=== PATIENT | female | born 1955 | race Caucasian/White ===

== ENCOUNTER 2017-10-31 12:31 | Inpatient (IN) | payer BC ==
[2017-10-31] VITALS (7 sets, daily range): BP systolic 114–139; BP diastolic 54–64; PULSE 72–94; RESP 17–20; TEMP 96.7–98.1; O2SAT 94–98
[~2017-10-31] VITALS: Ht 160 cm; Wt 63.4 kg
[2017-10-31] MEDS ORDERED: CREON24 PO (12:46)
[2017-10-31] MEDS ORDERED: IMIT25TA PO (12:46)
[2017-10-31] MEDS ORDERED: SODIUM CHLORID 0.9% 500 ML INJ 500 ML IV ONE (13:00)
[2017-10-31] MEDS ORDERED: MORPHINE SULFATE 4 MG/ML INJ IV PUSH ONE ×2 (13:00→15:00)
[2017-10-31] MEDS ORDERED: ONDANSETRON HCL 4 MG/2 ML VIAL ONE (13:30)
[2017-10-31] MEDS ORDERED: ONDANSETRON HCL 4 MG/2 ML VIAL IV ONE (13:30)
[2017-10-31 13:43] LABS: AUTOMATED NEUTROPHIL # 6.5 TH/MM3 (1.8-7.7); BASOPHIL # 0.1 TH/MM3 (0-0.2); BASOPHIL % 0.6 % (0.0-2.0); EOSINOPHIL % 0.5 % (0.0-4.0); HEMATOCRIT 36.6 % (35.0-46.0); HEMO FLAGS DIFF FINAL; LYMPHOCYTE # 1.4 TH/MM3 (1.0-4.8); MEAN CELL VOLUME 97.9 FL (80.0-100.0); MEAN CORPUSCULAR HEMOGLOBIN 33.3 PG (27.0-34.0); MEAN CORPUSCULAR HGB CONC 34.1 % (32.0-36.0); MONO % 10.9 % (0.0-8.0); PLATELET COUNT 244 TH/MM3 (150-450); RED BLOOD COUNT 3.74 MIL/MM3 (4.00-5.30); RED CELL DISTRIBUTION WIDTH 12.8 % (11.6-17.2)
[2017-10-31 14:11] LABS: ANION GAP 5 MEQ/L (5-15); AST (GOT) 17 U/L (15-37); BICARBONATE 29.6 MEQ/L (21.0-32.0); CHLORIDE 103 MEQ/L (98-107); GLOMERULAR FILTRATION RATE 71 ML/MIN (>89); POTASSIUM 4.2 MEQ/L (3.5-5.1); SODIUM (NA) 138 MEQ/L (136-145)
[2017-10-31 14:17] LABS: ALKALINE PHOSPHATASE 139 U/L (45-117); ALT (GPT) 27 U/L (10-53); BLOOD UREA NITROGEN 15 MG/DL (7-18); TOTAL BILIRUBIN ADULT 0.5 MG/DL (0.2-1.0)
--- NOTE | 2017-10-31 14:50 | PD ---
HPI Chief Complaint: Fall Time Seen by Provider: 12:52 Travel History International Travel<30 days: No Contact w/Intl Traveler<30days: No Traveled to known affect area: No History of Present Illness HPI This is a 62-year-old female who has a history of pancreatic cancer currently not receiving treatment who presents to the emergency department having [place] a [place] in the beach. She has chronic gait abnormalities which contributed to her fall. She fell on her left hip and she reports severe pain in her left hip, constant, worse with movement, improved with rest. She denies any other injuries. People with her say that she lost consciousness for 1 minute after she fell but she didn't hit her head it seem like she just passed out. She doesn't remember that happening. She's not on any blood thinners. PFSH Past Medical History Cancer: Yes (BRAIN STEM, PANCREAS) Diabetes: No Migraines: Yes Tetanus Vaccination: < 5 Years Influenza Vaccination: No ?: Not Menopausal: Yes Past Surgical History Abdominal Surgery: Yes (HALF PANCREAS AND HALF SPLEEN) Neurologic Surgery: Yes (BRAIN STEM TUMOR REMOVAL) Social History Alcohol Use: Yes (OCCAS) Tobacco Use: No Substance Use: No Allergies-Medications (Allergen,Severity, Reaction): Coded Allergies: gluten (Verified Allergy, Mild, JOINT PAIN, 10/31/17) milk (Verified Allergy, Mild, JOINT PAIN, 10/31/17) soy (Verified Allergy, Mild, JOINT PAIN, 10/31/17) Reported Meds & Prescriptions Reported Meds & Active Scripts Active Reported Imitrex (Sumatriptan Succinate) 25 Mg Tab 25 Mg PO ONCE PRN If a satisfactory response has not been obtained at 2 hours, a second dose may be administered Creon (Amylase/Lipase/Protease) 24,000-76,000-120,000 Units Cap 1 Cap PO TIDPC Review of Systems Except as stated in HPI: all other systems reviewed are Neg Physical Exam Narrative GENERAL:Well appearing, no acute distress SKIN: Focused skin assessment warm and dry. HEAD: Atraumatic. Normocephalic. EYES: Pupils equal and round. No injection or drainage. ENT: Moist mucous membranes NECK: Trachea midline. No cervical spine tenderness. CARDIOVASCULAR: Regular rate and rhythm. No murmur appreciated. 2+ bilateral DP pulses with normal capillary refill. RESPIRATORY: Clear to auscultation. Breath sounds equal bilaterally. GASTROINTESTINAL: Abdomen soft, non-tender, nondistended. MUSCULOSKELETAL: Severe pain with flexion at the left hip NEUROLOGICAL: Awake and alert. No obvious cranial nerve deficits. Moving all extremities. PSYCHIATRIC: Appropriate mood and affect; insight and judgment normal. Data Data Last Documented VS Vital Signs Date Time Temp Pulse Resp B/P (MAP) Pulse Ox O2 Delivery O2 Flow Rate FiO2 10/31/17 15:53 94 18 129/58 (81) 98 Room Air 10/31/17 12:39 98.1 Orders Orders Complete Blood Count With Diff (10/31/17 13:00) Comprehensive Metabolic Panel (10/31/17 13:00) ^ Insert Iv (10/31/17 13:00) Hip, Uni(Ap&Lat) W Ap Pelvis (10/31/17 ) Morphine Inj (Morphine Inj) (10/31/17 13:00) ^ Insert Iv (10/31/17 13:00) Electrocardiogram (10/31/17 ) Sodium Chlorid 0.9% 500 Ml Inj (Ns 500 M (10/31/17 13:00) Ondansetron Inj (Zofran Inj) (10/31/17 13:30) Ondansetron Inj (Zofran Inj) (10/31/17 13:30) Morphine Inj (Morphine Inj) (10/31/17 15:00) Ct Pelvis W/O Iv Contrast (10/31/17 ) Ct Hip W/O Contrast (10/31/17 ) Admit Order (Ed Use Only) (10/31/17 16:58) Labs Laboratory Tests Test 10/31/17 13:30 White Blood Count 9.0 TH/MM3 Red Blood Count 3.74 MIL/MM3 Hemoglobin 12.5 GM/DL Hematocrit 36.6 % Mean Corpuscular Volume 97.9 FL Mean Corpuscular Hemoglobin 33.3 PG Mean Corpuscular Hemoglobin Concent 34.1 % Red Cell Distribution Width 12.8 % Platelet Count 244 TH/MM3 Mean Platelet Volume 8.5 FL Neutrophils (%) (Auto) 72.0 % Lymphocytes (%) (Auto) 16.0 % Monocytes (%) (Auto) 10.9 % Eosinophils (%) (Auto) 0.5 % Basophils (%) (Auto) 0.6 % Neutrophils # (Auto) 6.5 TH/MM3 Lymphocytes # (Auto) 1.4 TH/MM3 Monocytes # (Auto) 1.0 TH/MM3 Eosinophils # (Auto) 0.0 TH/MM3 Basophils # (Auto) 0.1 TH/MM3 CBC Comment DIFF FINAL Differential Comment Blood Urea Nitrogen 15 MG/DL Creatinine 0.81 MG/DL Random Glucose 110 MG/DL Total Protein 8.0 GM/DL Albumin 4.0 GM/DL Calcium Level 9.4 MG/DL Alkaline Phosphatase 139 U/L Aspartate Amino Transf (AST/SGOT) 17 U/L Alanine Aminotransferase (ALT/SGPT) 27 U/L Total Bilirubin 0.5 MG/DL Sodium Level 138 MEQ/L Potassium Level 4.2 MEQ/L Chloride Level 103 MEQ/L Carbon Dioxide Level 29.6 MEQ/L Anion Gap 5 MEQ/L Estimat Glomerular Filtration Rate 71 ML/MIN MDM Medical Decision Making Medical Screen Exam Complete: Yes Emergency Medical Condition: Yes Interpretation(s) Afebrile, no tachycardia, normotensive No leukocytosis Electrolytes are reassuring Last [address] 10/31/17 0000 Signed Impressions: Service Date/Time: Tuesday, October 31, 2017 16:07 - CONCLUSION: Intact pelvis. Vic Ortiz MD Lower Extremity CT 10/31/17 0000 Signed Impressions: Service Date/Time: Tuesday, October 31, 2017 16:07 - CONCLUSION: Minimally displaced intertrochanteric fracture of the proximal left femur. Vic Ortiz MD Hip and Pelvis X-Ray 10/31/17 0000 Signed Impressions: Service Date/Time: Tuesday, October 31, 2017 15:06 - CONCLUSION: 1. No acute fracture or dislocation. Abdoul Mccall MD Differential Diagnosis Proximal femur fracture, pubic ramus fracture, hip dislocation, hip contusion Narrative Course This is a 62-year-old female who presents to the emergency department following a mechanical fall. She is reporting left hip pain. She has a normal neurovascular exam. X-ray and CT demonstrate an intertrochanteric femur fracture. Patient will be admitted for surgical repair. She was seen by Dr. Chang in the emergency department. Diagnosis Primary Impression: Intertrochanteric fracture of femur Qualified Codes: S72.145A - Nondisplaced intertrochanteric fracture of left femur, initial encounter for closed fracture Admitting Information Admitting Physician Requests: Admit Tracy Downs MD Oct 31, 2017 14:50
--- NOTE | 2017-10-31 15:48 | RADRPT ---
EXAM DATE/TIME: 10/31/2017 15:06 [facility] COMPARISON: No previous studies available for comparison. INDICATIONS : Fall. Severe left hip pain. MEDICAL HISTORY : None. SURGICAL HISTORY : None. ENCOUNTER: Initial ACUITY: 1 day PAIN SCORE: 10/10 LOCATION: Left lateral FINDINGS: Examination of the left hip was performed with AP Pelvis. The primary and secondary trabecular patte rn of the femoral neck is intact. The hip joint is of normal width without significant sclerosis or bony hypertrophy. The acetabulum is grossly intact. CONCLUSION: 1. No acute fracture or dislocation. Abdoul Mccall MD on October 31, 2017 at 15:45 Board Certified Radiologist. This report was verified electronically.
--- NOTE | 2017-10-31 16:34 | RADRPT ---
EXAM DATE/TIME: 10/31/2017 16:07 [facility] COMPARISON: Left hip CT same day INDICATIONS : Left hip pain post fall. ORAL CONTRAST: No oral contrast ingested. RADIATION DOSE: 19.47 CTDIvol (mGy) MEDICAL HISTORY : None SURGICAL HISTORY : None. ENCOUNTER: Initial ACUITY: 1 day PAIN SCALE: 10/10 LOCATION: Left hip. TECHNIQUE: Volumetric scanning of the pelvis was performed. Using automated exposure control and adjustment of the mA and/or kV according to patient size, radiation dose was kept as low as reasonably achievable t o obtain optimal diagnostic quality images. DICOM format image data is available electronically for review and comparison. FINDINGS: BOWEL/MESENTERY: The visualized small and large bowel demonstrate no acute abnormality. There is no free fluid. BLADDER: There is no wall thickening or mass. RETROPERITONEUM: There is no aneurysm or lymphadenopathy. REPRODUCTIVE: Within normal limits. INGUINAL: There is no lymphadenopathy or hernia. MUSCULOSKELETAL: Bony pelvis is intact and has normal morphology. No subluxation of either hip. CONCLUSION: Intact pelvis. Vic Ortiz MD on October 31, 2017 at 16:30 Board Certified Radiologist. This report was verified electronically.
--- NOTE | 2017-10-31 16:36 | RADRPT ---
EXAM DATE/TIME: 10/31/2017 16:07 [facility] COMPARISON: CT PELVIS W/O CONTRAST, October 31, 2017, 16:07. HIP LEFT (AP&LAT 2/3VWS) W AP PELVIS, October 31, 2017, 15:06. INDICATIONS : Left hip pain post fall. RADIATION DOSE: ; Reconstructed from previous dataset, no dose MEDICAL HISTORY : None SURGICAL HISTORY : None. ENCOUNTER: Initial ACUITY: 1 day PAIN SCALE: 10/10 LOCATION: Left hip TECHNIQUE: Volumetric scanning of the hip was performed. Using automated exposure control and adjustment of the mA and/or kV according to patient size, radiation dose was kept as low as reasonably achievable to o btain optimal diagnostic quality images. DICOM format image data is available electronically for rev iew and comparison. FINDINGS: There is a mildly comminuted minimally displaced left intertrochanteric femoral fracture. Femoral nec k and head are intact. There is no subluxation. No significant joint effusion or hematoma demonstrate d. CONCLUSION: Minimally displaced intertrochanteric fracture of the proximal left femur. Vic Ortiz MD on October 31, 2017 at 16:32 Board Certified Radiologist. This report was verified electronically.
[2017-10-31] MEDS ORDERED: BISACODYL 10 MG SUPP RECTAL PRN (17:30)
[2017-10-31] MEDS ORDERED: SODIUM CHLORIDE 0.9% FLUSH 10 ML FLUSH IV FLUSH PRN (17:30)
[2017-10-31] MEDS ORDERED: MAGNESIUM HYDROXIDE SUSP 30 ML CUP PO PRN (17:30)
[2017-10-31] MEDS ORDERED: ACETAMINOPHEN 325 MG TAB PO PRN (17:30)
[2017-10-31] MEDS ORDERED: SENNOSIDES 8.6 MG TAB PO PRN (17:30)
[2017-10-31] MEDS ORDERED: LACTULOSE SYRUP 20 GM/30 ML CUP PO PRN (17:30)
[2017-10-31] MEDS ORDERED: NALOXONE HCL 0.4 MG/ML AMP IV PUSH PRN (17:30)
--- NOTE | 2017-10-31 17:37 | HHI.HP ---
[facility] Unknown Admission Diagnosis proximal femur fracture Diagnoses: Travel History International Travel<30 Days: No Contact w/Intl Traveler <30 Da: No Traveled to Known Affected Are: No History of Present Illness 62-year-old female with a past medical history significant for pancreatic cancer 2 years ago status post resection, chemotherapy and radiation presents after suffering a fall on the beach. The patient reports she is somewhat unsteady on her feet since she had a brain stem metastasis removed and was walking up an incline on the sand when she lost her footing and fell onto her left hip. Lower extremity CT shows a minimally displaced left intertrochanteric fracture of the proximal femur. The patient reports pain with movement. Laboratory values within normal limits. Temperature 98.1, pulse 74, respiratory rate 20, BP 122/57, pulse ox 98% on room air. 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 Father with diabetes mellitus. Social History Never smoker. Occasional alcohol. Denies tobacco or illicit drugs. Physical Exam Vital Signs Vital Signs Date Time Temp Pulse Resp B/P (MAP) Pulse Ox O2 Delivery O2 Flow Rate FiO2 10/31/17 15:53 94 18 129/58 (81) 98 Room Air 10/31/17 13:54 83 120/55 (76) 98 Room Air 10/31/17 12:46 77 20 100 Room Air 10/31/17 12:39 98.1 74 20 122/57 (78) 98 Physical Exam GENERAL: female lying in bed SKIN: No rashes, ecchymoses or lesions. Cool and dry. HEAD: Atraumatic. Normocephalic. No temporal or scalp tenderness. EYES: Pupils equal round and reactive. Extraocular motions intact. No scleral icterus. No injection or drainage. ENT: Nose without bleeding, purulent drainage or septal hematoma. Throat without erythema, tonsillar hypertrophy or exudate. Uvula midline. Airway patent. NECK: Trachea midline. No JVD or lymphadenopathy. Supple, nontender, no meningeal signs. CARDIOVASCULAR: Regular rate and rhythm without murmurs, gallops, or rubs. RESPIRATORY: Clear to auscultation. Breath sounds equal bilaterally. No wheezes , rales, or rhonchi. GASTROINTESTINAL: Abdomen soft, non-tender, nondistended. No hepato-splenomegaly , or palpable masses. No guarding. MUSCULOSKELETAL: Extremities without clubbing, cyanosis, or edema. No joint tenderness, effusion, or edema noted. No calf tenderness. Left lower extremity neurovascularly intact. NEUROLOGICAL: Awake and alert. Cranial nerves II through XII intact. Motor and sensory grossly within normal limits. Normal speech. Laboratory Laboratory Tests Test 10/31/17 13:30 White Blood Count 9.0 Red Blood Count 3.74 Hemoglobin 12.5 Hematocrit 36.6 Mean Corpuscular Volume 97.9 Mean Corpuscular Hemoglobin 33.3 Mean Corpuscular Hemoglobin Concent 34.1 Red Cell Distribution Width 12.8 Platelet Count 244 Mean Platelet Volume 8.5 Neutrophils (%) (Auto) 72.0 Lymphocytes (%) (Auto) 16.0 Monocytes (%) (Auto) 10.9 Eosinophils (%) (Auto) 0.5 Basophils (%) (Auto) 0.6 Neutrophils # (Auto) 6.5 Lymphocytes # (Auto) 1.4 Monocytes # (Auto) 1.0 Eosinophils # (Auto) 0.0 Basophils # (Auto) 0.1 CBC Comment DIFF FINAL Differential Comment Blood Urea Nitrogen 15 Creatinine 0.81 Random Glucose 110 Total Protein 8.0 Albumin 4.0 Calcium Level 9.4 Alkaline Phosphatase 139 Aspartate Amino Transf (AST/SGOT) 17 Alanine Aminotransferase (ALT/SGPT) 27 Total Bilirubin 0.5 Sodium Level 138 Potassium Level 4.2 Chloride Level 103 Carbon Dioxide Level 29.6 Anion Gap 5 Estimat Glomerular Filtration Rate 71 Result Diagram: 10/31/170 10/31/17 1330 Caprini VTE Risk Assessment Caprini VTE Risk Assessment: Mod/High Risk (score >= 2) Caprini Risk Assessment Model Point Value = 1 Point Value = 2 Point Value = 3 Point Value = 5 Age 41-60 Minor surgery BMI > 25 kg/m2 Swollen legs Varicose veins or History of unexplained or recurrent spontaneous Oral contraceptives or hormone replacement Sepsis (< 1 month) Serious lung disease, including pneumonia (< 1 month) Abnormal pulmonary function Acute myocardial infarction Congestive heart failure (< 1 month) History of inflammatory bowel disease Medical patient at bed rest Age 61-74 Arthroscopic surgery Major open surgery (> 45 min) Laparoscopic surgery (> 45 min) Malignancy Confined to bed (> 72 hours) Immobilizing plaster cast Central venous access Age >= 75 History of VTE Family history of VTE Factor V Leiden Prothrombin [id number] Lupus anticoagulant Anticardiolipin antibodies Elevated serum homocysteine Heparin-induced thrombocytopenia Other congenital or acquired thrombophilia Stroke (< 1 month) Elective arthroplasty Hip, pelvis, or leg fracture Acute spinal cord injury (< 1 month) Prophylaxis Regimen Total Risk Factor Score Risk Level Prophylaxis Regimen 0-1 Low Early ambulation 2 Moderate Order ONE of the following: *Sequential Compression Device (SCD) *Heparin 5000 units SQ BID 3-4 Higher Order ONE of the following medications: *Heparin 5000 units SQ TID *Enoxaparin/Lovenox 40 mg SQ daily (WT < 150 kg, CrCl > 30 mL/min) *Enoxaparin/Lovenox 30 mg SQ daily (WT < 150 kg, CrCl > 10-29 mL/min) *Enoxaparin/Lovenox 30 mg SQ BID (WT < 150 kg, CrCl > 30 mL/min) AND/OR *Sequential Compression Device (SCD) 5 or more Highest Order ONE of the following medications: *Heparin 5000 units SQ TID (Preferred with Epidurals) *Enoxaparin/Lovenox 40 mg SQ daily (WT < 150 kg, CrCl > 30 mL/min) *Enoxaparin/Lovenox 30 mg SQ daily (WT < 150 kg, CrCl > 10-29 mL/min) *Enoxaparin/Lovenox 30 mg SQ BID (WT < 150 kg, CrCl > 30 mL/min) AND *Sequential Compression Device (SCD) Assessment and Plan Assessment and Plan 62-year-old female with past medical history significant for metastatic pancreatic cancer presents with left hip fracture. 1. Left hip fracture Lower extremity CT showed minimally displaced intertrochanteric fracture of the proximal femur Coagulation studies pending Nothing by mouth after midnight Orthopedic surgery consulted, appreciate recommendations Morphine for pain PT consulted 2. History of pancreatic cancer Patient is status post distal pancreatectomy and splenectomy, brainstem tumor removal and chemotherapy/radiation Continue home Creon 3. Celiac disease Gluten-free diet FEN NPO at midnight NS at 75 cc/hr while NPO Electrolytes: monitor and replete prn Holding pharmacologic anticoagulation in anticipation of surgical intervention tomorrow Case discussed with ER physician at length Physician Certification 2 Midnight Certification Type: Admission for Inpatient Services Order for Inpatient Services The services are ordered in accordance with Medicare regulations or non- Medicare payer requirements, as applicable. In the case of services not specified as inpatient-only, they are appropriately provided as inpatient services in accordance with the 2-midnight benchmark. Estimated LOS (days): 2 2 days is the estimated time the patient will need to remain in the hospital, assuming treatment plan goals are met and no additional complications. Post-Hospital Plan: Not yet determined Jazmin Becerril MD Oct 31, 2017 17:37
[2017-10-31] MEDS: LIPASE/PROTEASE/AMYLASE (24,000/76,000/120,000) CAP PO SCH (18:30)
[2017-10-31] MEDS: MORPHINE SULFATE 4 MG/ML INJ IV PUSH PRN (19:02)
[2017-10-31] MEDS: ONDANSETRON HCL 4 MG/2 ML VIAL IVP PRN (19:02)
--- NOTE | 2017-10-31 19:07 | MB ---
cc: THEODORE GERBER DATE OF CONSULTATION: 10/31/2017. REASON FOR CONSULTATION: Left intertrochanteric hip fracture. HISTORY OF PRESENT ILLNESS: This is a 62-year-old female with past history of pancreatic cancer status post resection and chemotherapy as well as radiation therapy. She fell while on the beach vacationing from [place]. She was unsteady in her gait. She has a history also of brain stem metastases treated with surgery and some radiation and chemotherapy as well. After the fall, she had severe onset of left hip pain. She was unable to stand or bear weight or move that left hip. CT scan revealed evidence of a left intertrochanteric hip fracture. No numbness or tingling. No referred symptoms. The pain is constant and again severe with any movement. Slight relief with immobilization. PAST MEDICAL HISTORY: 1. Pancreatic cancer. 2. Celiac disease. 3. Bird's thyroiditis. 4. Migraines. PAST SURGICAL HISTORY: 1. Brain stem tumor resection. 2. Pancreas resection. 3. Splenectomy. MEDICATIONS: 1. Imitrex. 2. Creon. ALLERGIES: 1. GLUTEN. 2. MILK. 3. SOY. FAMILY HISTORY: Family history is positive for heart disease, diabetes. SOCIAL HISTORY: Nonsmoker. She does use drugs and occasionally drinks alcohol. REVIEW OF SYSTEMS: Negative for ten systems other than the history of present illness. PHYSICAL EXAMINATION: VITAL SIGNS: Temperature 98, pulse 74, respirations 20, blood pressure 120/50. GENERAL: The patient is awake, alert and lying in bed in mild distress as related to her injury. She is worse with any movement. HEAD, EYES, EARS, NOSE, THROAT: Normocephalic and atraumatic. Pupils round and reactive to light. Extraocular muscles intact. NECK: The neck is supple. LUNGS: Clear. HEART: Regular rate and rhythm. ABDOMEN: Abdomen soft and nontender. EXTREMITIES: The patient has pain with any passive motion of the left hip. She can flex and extend her ankle and toes distally. LABORATORY STUDIES: White blood cell count is 9, hemoglobin is 12, hematocrit is 36, platelet count 244,000. Glucose 110. IMAGING STUDIES: X-rays of the left hip reveal a left intertrochanteric hip fracture as well as CT scan. IMPRESSION: 1. A 62-year-old female status post fall with left intertrochanteric hip fracture. 2. History of pancreatic cancer with successful treatment. PLAN: Discussed the diagnosis and treatment with the patient as well as family members at the bedside. I spoke about the option of nonoperative treatment versus surgery. Surgery would consist of intramedullary nailing. The risks of surgery were discussed, which include but are not limited to anesthesia, bleeding, infection, damage to nerve or blood vessels, pain, stiffness, failure of hardware, blood clots, pulmonary embolism. The patient understands. She favors the benefits over the risks. She does wish to proceed with surgery. Written consent has been obtained. The surgical site has been marked. MD ANGELINE De Leon/AMINATA /6:34 PM /6:56 PM
[2017-10-31] MEDS ORDERED: CHLORHEXIDINE GLUCONATE 2 % 1 PACK (2 CLOTHS) TOPICAL PRN (20:30)
[2017-10-31] MEDS ORDERED: SODIUM CHLORID 0.9% 500 ML IV PRN (20:30)
[2017-10-31] MEDS ORDERED: POVIDONE IODINE 5% (ANTISEPSIS KIT) 4 APPLICATIONS EACH NARE PRN (20:30)
[2017-10-31] MEDS ORDERED: LACTATED RINGER'S 1000 ML IV PRN (20:30)
[2017-10-31] MEDS ORDERED: DOCUSATE SODIUM 50 MG/SENNA 8.6 MG TAB PO SCH (21:00)
[2017-10-31] MEDS: SODIUM CHLORIDE 0.9% FLUSH 10 ML FLUSH IV FLUSH SCH (21:43)
[2017-10-31] MEDS ORDERED: SODIUM CHLOR 0.9% 1000 ML INJ 1,000 ML IV SCH (23:59)
[2017-11-01] MEDS: MORPHINE SULFATE 4 MG/ML INJ IV PUSH PRN ×2 (02:23→06:28)
[2017-11-01 03:59] VITALS: BP 111/58; PULSE 75; RESP 18; TEMP 97.9; O2SAT 97
[2017-11-01] MEDS: ONDANSETRON HCL 4 MG/2 ML VIAL IVP PRN (06:33)
[2017-11-01] MEDS ORDERED: ENOX40P SQ (07:02)
[2017-11-01] MEDS ORDERED: HYDR-3288 PO (07:02)
[2017-11-01] MEDS ORDERED: ASPI81CH6 CHEW (07:03)
[2017-11-01 07:28] LABS: AUTOMATED NEUTROPHIL # 5.3 TH/MM3 (1.8-7.7); BASOPHIL % 0.5 % (0.0-2.0); EOSINOPHIL % 0.1 % (0.0-4.0); HEMATOCRIT 33.7 % (35.0-46.0); HEMO FLAGS DIFF FINAL; LYMPH % 18.5 % (9.0-44.0); LYMPHOCYTE # 1.4 TH/MM3 (1.0-4.8); MEAN CELL VOLUME 99.1 FL (80.0-100.0); MEAN CORPUSCULAR HEMOGLOBIN 33.1 PG (27.0-34.0); MEAN CORPUSCULAR HGB CONC 33.4 % (32.0-36.0); MONO % 12.2 % (0.0-8.0); NEUT % 68.7 % (16.0-70.0); PLATELET COUNT 210 TH/MM3 (150-450); RED CELL DISTRIBUTION WIDTH 12.9 % (11.6-17.2); WHITE BLOOD COUNT 7.8 TH/MM3 (4.0-11.0)
[2017-11-01 07:36] LABS: APTT (PATIENT) 26.9 SEC (24.3-30.1); PROTHROMBIN TIME - PATIENT 10.6 SEC (9.8-11.6)
[2017-11-01 07:48] LABS: BICARBONATE 29.1 MEQ/L (21.0-32.0); POTASSIUM 4.3 MEQ/L (3.5-5.1)
[2017-11-01 08:00] VITALS: BP 127/52; PULSE 71; RESP 17; TEMP 97.7; O2SAT 96
[2017-11-01] MEDS ORDERED: Post-op Orders (for Pharmacy) MISC XX ONE (09:30)
[2017-11-01] MEDS ORDERED: MAGNESIUM HYDROXIDE SUSP 30 ML CUP PO PRN (09:30)
[2017-11-01] MEDS ORDERED: diphenhydrAMINE HCL 25 MG CAP PO PRN (09:30)
[2017-11-01] MEDS: LIPASE/PROTEASE/AMYLASE (24,000/76,000/120,000) CAP PO SCH ×3 (09:30→18:30)
[2017-11-01] MEDS ORDERED: MISCELLANEOUS NURSING INFORMATION XX PRN (09:30)
[2017-11-01] MEDS ORDERED: MISCELLANEOUS PHARMACY INFORMATION XX ONE (09:30)
[2017-11-01] MEDS ORDERED: ONDANSETRON HCL 4 MG/2 ML VIAL IVP PRN (09:30)
[2017-11-01] MEDS ORDERED: NALOXONE HCL 0.4 MG/ML AMP IV PUSH PRN (09:30)
[2017-11-01] MEDS ORDERED: ACETAMINOPHEN/HYDROcodone 325 MG/7.5 MG TAB PO PRN (09:30)
--- NOTE | 2017-11-01 10:11 | HHI.PR ---
Subjective Remarks Follow-up for hip fracture Patient had episode of emesis during the interview. She vomited her food. Patient stated that she has been very anxious and that her migraines starting. She says she always vomits when this happens. Patient stated that he sister is tomorrow and she is very emotional that she will miss her . Otherwise her SEAMAN is mild and it is the same type of SEAMAN she had before. She asked for an ice pack. after the episode of emesis she stated that she did not feel nauseous anymore. Patient stated that she does not have any chest pain, tightness of breathing, palpitation, lightheadedness/dizziness. She stated that she is asymptomatic even with exertion. Her son at the bedside during interview. Objective Vitals Vital Signs Date Time Temp Pulse Resp B/P (MAP) Pulse Ox O2 Delivery O2 Flow Rate FiO2 11/01/17 08:00 97.7 71 17 127/52 (77) 96 11/01/17 03:59 97.9 75 18 111/58 (75) 97 10/31/17 23:21 96.7 72 17 114/54 (74) 95 10/31/17 19:36 97.5 81 18 121/57 (78) 94 10/31/17 19:15 91 14 139/64 (89) 94 10/31/17 18:16 92 20 129/60 (83) 94 Room Air 10/31/17 15:53 94 18 129/58 (81) 98 Room Air 10/31/17 13:54 83 120/55 (76) 98 Room Air 10/31/17 12:46 77 20 100 Room Air 10/31/17 12:39 98.1 74 20 122/57 (78) 98 I/O 10/31/17 10/31/17 10/31/17 11/01/17 11/01/17 11/01/17 07:00 15:00 23:00 07:00 15:00 23:00 Intake Total 500 ml 120 ml 0 ml Output Total 200 ml 350 ml Balance 500 ml -80 ml -350 ml Intake Oral 120 ml 0 ml IV Total 500 ml Output Urine Total 200 ml 350 ml # Bowel Movements 0 0 Result Diagram: 11/01/1760611/01/17606 Objective Remarks GENERAL: in NAD SKIN: Warm and dry. HEAD: Normocephalic. EYES: No scleral icterus. No injection or drainage. NECK: Supple, trachea midline. No JVD or lymphadenopathy. CARDIOVASCULAR: Regular rate and rhythm without murmurs, gallops, or rubs. RESPIRATORY: Breath sounds equal bilaterally. No accessory muscle use. GASTROINTESTINAL: Abdomen soft, non-tender, nondistended. MUSCULOSKELETAL: No cyanosis, or edema. Medications and IVs Current Medications Morphine Sulfate (Morphine Inj) 3 mg ONCE ONCE IV PUSH Last administered on 13:32; Start 10/31/17 at 13:00; Stop 10/31/17 at 13:02; Status DC Sodium Chloride 500 ml @ 500 mls/hr BOLUS ONCE IV Last administered on 13:31; Start 10/31/17 at 13:00; Stop 10/31/17 at 13:59; Status DC Ondansetron HCl (Zofran Inj) 4 mg ONCE ONCE IV Last administered on 10/31/17 13:32; Start 10/31/17 at 13:30; Stop 10/31/17 at 13:31; Status DC Ondansetron HCl (Zofran Inj) 4 mg STK-MED ONCE .ROUTE ; Start 10/31/17 at 13:30 ; Stop 10/31/17 at 13:31; Status DC Morphine Sulfate (Morphine Inj) 3 mg ONCE ONCE IV PUSH Last administered on 15:53; Start 10/31/17 at 15:00; Stop 10/31/17 at 15:01; Status DC Sodium Chloride 1,000 ml @ 75 mls/hr [id number] IV Last administered on 23:46; Start 10/31/17 at 23:59 Sodium Chloride (NS Flush) 2 ml UNSCH PRN IV FLUSH FLUSH AFTER USING IV ACCESS Last administered on 11/01/17 06:30; Start 10/31/17 at 17:30 Sodium Chloride (NS Flush) 2 ml BID IV FLUSH Last administered on 10/31/17 21: 43; Start 10/31/17 at 21:00 Acetaminophen (Tylenol) 650 mg Q4H PRN PO TEMP > 100.4; Start 10/31/17 at 17:30 Ondansetron HCl (Zofran Inj) 4 mg Q6H PRN IVP NAUSEA OR VOMITING Last administered on 11/01/17 06:33; Start 10/31/17 at 17:30; Stop 11/01/17 at 09:35 ; Status DC Naloxone HCl (Narcan Inj) 0.4 mg UNSCH PRN IV PUSH SEE LABEL COMMENTS; Start 10/31/17 at 17:30 Senna/Docusate Sodium (Angely-Colace) 1 tab BID PO Last administered on 21:43; Start 10/31/17 at 21:00 Magnesium Hydroxide (Milk Of Magnesia Liq) 30 ml Q12H PRN PO Mild constipation ; Start 10/31/17 at 17:30 Sennosides (Senokot) 17.2 mg Q12H PRN PO Moderate constipation; Start 10/31/17 at 17:30 Bisacodyl (Dulcolax Supp) 10 mg DAILY PRN RECTAL SEVERE CONSITIPATION; Start 10/31/17 at 17:30 Lactulose (Lactulose Liq) 30 ml DAILY PRN PO SEVERE CONSITIPATION; Start at 17:30 Amylase/Lipase/ Protease (Creon 24-76-120) 1 cap TIDPC PO ; Start 10/31/17 at 18 :30 Morphine Sulfate (Morphine Inj) 2 mg Q3H PRN IV PUSH pain 6-10 Last administered on 11/01/17 06:28; Start 10/31/17 at 17:30 Lactated Ringer's 1,000 ml @ 30 mls/hr Q24H PRN IV SEE LABEL COMMENTS Last administered on 11/01/17 06:29; Start 10/31/17 at 20:30; Stop 11/03/17 at 20:29 Sodium Chloride 500 ml @ 30 mls/hr [id number] PRN IV SEE LABEL COMMENTS; Start at 20:30; Stop 11/03/17 at 20:29 Povidone Iodine (Betadine 5% Antisepsis Kit) 1 applic REHAB PHYSICIAN PRN EACH NARE SEE LABEL COMMENTS; Start 10/31/17 at 20:30; Stop 11/03/17 at 20:29 Chlorhexidine Gluconate (Chlorhexidine 2% Cloth) 3 pack REHAB PHYSICIAN PRN TOPICAL SEE LABEL COMMENTS; Start 10/31/17 at 20:30; Stop 11/03/17 at 20:29 Dextrose/Sodium Chloride 1,000 ml @ 100 mls/hr Q10H IV ; Start 11/01/17 at 09: 27; Status UNV Miscellaneous Information (Post-op Orders (for Pharmacy)) STAT ONCE XX ; Start 11/01/17 at 09:30; Stop 11/01/17 at 09:31; Status UNV Enoxaparin Sodium (Lovenox Inj) 40 mg Q24H SQ ; Start 11/01/17 at 09:30; Stop 11/10/17 at 09:31; Status UNV Senna/Docusate Sodium (Angely-Colace) 1 tab BID PO ; Start 11/01/17 at 21:00; Status UNV Magnesium Hydroxide (Milk Of Magnesia Liq) 10 ml Q12H PRN PO CONSTIPATION; Start 11/01/17 at 09:30; Status UNV Cefazolin Sodium 1000 mg/Sodium Chloride 100 ml @ 200 mls/hr Q8H IV ; Start at 09:30; Status UNV Miscellaneous Information UNSCH PRN XX SEE LABEL COMMENTS; Start 11/01/17 at 09:30; Status UNV Miscellaneous Medication ([facility] Information) ONCE ONCE XX ; Start 11/01/17 at 09:30; Stop 11/01/17 at 09:31; Status UNV Acetaminophen/ Hydrocodone Bitart ([place]ige 7.5-325 Mg) 1 tab Q4H PRN PO PAIN LESS THAN 5 ON SCALE; Start 11/01/17 at 09:30; Status UNV Acetaminophen/ Hydrocodone Bitart ([place]ige 7.5-325 Mg) 2 tab Q6H PRN PO PAIN GREATER THAN/EQUAL TO 5; Start 11/01/17 at 09:30; Status UNV Morphine Sulfate (Morphine Inj) 3 mg Q3H PRN IV PUSH Pain after BIOSECURITY OFFICER discontinued; Start 11/01/17 at 09:30; Status UNV Ondansetron HCl (Zofran Inj) 4 mg Q4H PRN IVP NAUSEA OR VOMITING; Start at 09:30; Status UNV Multivitamins/ Minerals Therapeutic (Theragran M Tab) 1 tab DAILY PO ; Start at 09:00; Status UNV Diphenhydramine HCl (Benadryl) 25 mg Q6H PRN PO ITCHING; Start 11/01/17 at 09: 30; Status UNV Naloxone HCl (Narcan Inj) 0.4 mg UNSCH PRN IV PUSH RESPIRATORY RATE LESS THAN 10; Start 11/01/17 at 09:30; Status UNV Ondansetron HCl (Zofran Inj) 4 mg Q4HR PRN IVP NAUSEA OR VOMITING; Start at 09:45; Status UNV A/P Assessment and Plan 62-year-old female with past medical history significant for metastatic pancreatic cancer presents with left hip fracture. 1. Left hip fracture Lower extremity CT showed minimally displaced intertrochanteric fracture of the proximal femur Patient scheduled for surgery at 11:30 AM. Management per orthopedic surgeon. 2. History of pancreatic cancer Patient is status post distal pancreatectomy and splenectomy, brainstem tumor removal and chemotherapy/radiation Continue home Creon 3. Celiac disease Gluten-free diet 4. Migraines Patient had episode of emesis to his migraines. Will give Zofran when necessary. Patient transferred an ice pack for her migraines. Case discussed with patient's nurse. Jenni Ngo MD Nov 01, 2017 10:11
[2017-11-01] MEDS ORDERED: GENTAMICIN SULFATE 80 MG/2 ML VIAL ONE (11:30)
[2017-11-01] MEDS ORDERED: ACETAMINOPHEN 1000 MG/100 ML 100 ML IV ONE (11:32)
[2017-11-01] MEDS ORDERED: VANCOMYCIN HCL 1000 MG VIAL ONE (12:21)
--- NOTE | 2017-11-01 13:19 | MP ---
cc: THEODORE GERBER DATE OF SURGERY 11/01/2017 PREOPERATIVE DIAGNOSIS Left intertrochanteric hip fracture. POSTOPERATIVE DIAGNOSIS Left intertrochanteric hip fracture. PROCEDURE Intramedullary nailing of left intertrochanteric hip fracture. SURGEON Dr. Theodore Gerber CONCESSION ATTENDANT Nilay Laughlin PA-C ANESTHESIA General. ESTIMATED BLOOD LOSS 100 cc. COMPLICATIONS None. IMPLANTS USED Synthes. JUSTIFICATION This patient is a 62-year-old female who fell sustaining a displaced left intertrochanteric hip fracture. She was taken to [facility] Emergency Room and x-rays confirmed the above-named findings. The patient was counseled as to the risks, benefits and alternatives to the above-named proposed surgical procedure. She did wish to proceed with surgery. PROCEDURE IN DETAIL Written consent was obtained. The patient was identified by name, taken to operating room, placed supine on the operating room table. General anesthesia was administered as well as 2 grams of IV Ancef. The left foot was placed in a padded traction boot, the right leg placed in a padded well leg maritnez. All bony prominences and pressure points were well padded. The left hip and left lower extremity were prepped and draped using isopropyl alcohol, Hibiclens solution and Chloraprep solution. A longitudinal incision was made in the lateral aspect of the left hip. The fascial layer was incised. A guidewire was used to gain entrance into the intramedullary canal of the femur. This was followed by cannulated anterior reamer, subsequently a Synthes 11 x 170-mm titanium trochanteric femoral nail was inserted into the intramedullary canal of the femur. The 130-degree locking jig was used to place a guidepin centered into the femoral head on the AP and lateral fluoroscopic projection. This was followed by placement of an 85-mm spiral blade. The top locking screw was secured to create a fixed angle sliding construct. Distally the locking jig was used to place a single lateral to medial transverse static locking screw. Fluoroscopic imaging again confirmed hardware placement and fracture reduction. The surgical wound was thoroughly irrigated with sterile saline solution. The fascial layer was closed with #1 Vicryl suture, the subcutaneous layer with 2-0 Vicryl suture. The skin was closed with Dermabond, sterile dressing applied. The patient tolerated the procedure well with no intraoperative complications noted. Nilay Laughlin, physician legislative assistant certified, was present during the entire procedure to include patient positioning and the procedure itself. The medical necessity of a physician's legislative assistant was indicated due to the complexity of the procedure. He assisted with manipulation of the leg and also traction. He assisted with both achieving and maintaining fracture reduction along with implantation of the internal fixation device. Theodore Gerber MD [id number]/SSB /12:39 PM /1:05 PM
[2017-11-01] MEDS: DEXT 5%-NACL 0.45% 1000 ML INJ 1,000 ML IV SCH ×2 (13:40)
--- NOTE | 2017-11-01 13:54 | RADRPT ---
EXAM DATE/TIME: 11/01/2017 12:32 [facility] COMPARISON: HIP LEFT (AP&LAT 2/3VWS) W AP PELVIS, October 31, 2017, 15:06. INDICATIONS : Post-op ORIF left hip fracture. MEDICAL HISTORY : None. SURGICAL HISTORY : None. ENCOUNTER: Subsequent ACUITY: 2 days PAIN SCORE: Non-responsive. LOCATION: Left hip. FINDINGS: A two view examination of the left hip was performed. Medullary laura and compression screw secures the previously identified intertrochanteric fracture. Fracture fragments are in excellent anatomic posit ion. CONCLUSION: Appropriate postoperative appearance of the left hip status post open reduction and internal fix ation as above. Robert Crespo MD on November 01, 2017 at 13:50 Board Certified Radiologist. This report was verified electronically.
[2017-11-01] MEDS ORDERED: DO NOT ADM ANY ANTICOAGULANT DRUGS PRN (14:15)
[2017-11-01] MEDS ORDERED: MORPHINE SULFATE 4 MG/ML INJ IV PUSH PRN (15:00)
[2017-11-01 16:00] VITALS: BP 112/48; PULSE 68; RESP 17; TEMP 98.4; O2SAT 94
[2017-11-01] MEDS: ACETAMINOPHEN/HYDROcodone 325 MG/7.5 MG TAB PO PRN ×2 (16:18→20:00)
--- NOTE | 2017-11-01 18:48 | EKG ---
Date Performed: 10/31/2017 Time Performed: 18:32:14 PTAGE: 62 years EKG: Sinus rhythm NORMAL ECG NO PREVIOUS TRACING DOCTOR: Milagro Mahmood Interpretating Date/Time 11/01/2017 18:47:18
[2017-11-01] MEDS: DOCUSATE SODIUM 50 MG/SENNA 8.6 MG TAB PO SCH (19:59)
[2017-11-01 20:47] VITALS: BP 97/51; PULSE 70; RESP 17; TEMP 98.9; O2SAT 95
[2017-11-01] MEDS: SODIUM CHLORIDE 0.9% FLUSH 10 ML FLUSH IV FLUSH SCH (21:00)
[2017-11-02] MEDS: ACETAMINOPHEN/HYDROcodone 325 MG/7.5 MG TAB PO PRN ×6 (00:01→22:18)
[2017-11-02 00:30] VITALS: BP 102/53; PULSE 71; RESP 17; TEMP 98.7; O2SAT 96
[2017-11-02 04:48] VITALS: BP 102/50; PULSE 72; RESP 17; TEMP 99; O2SAT 96
[2017-11-02 06:11] LABS: HEMATOCRIT 29.3 % (35.0-46.0); MEAN CELL VOLUME 98.2 FL (80.0-100.0); MEAN CORPUSCULAR HGB CONC 33.6 % (32.0-36.0); PLATELET COUNT 162 TH/MM3 (150-450); RED BLOOD COUNT 2.99 MIL/MM3 (4.00-5.30); RED CELL DISTRIBUTION WIDTH 12.8 % (11.6-17.2); REVIEW FLAG FINAL; WHITE BLOOD COUNT 6.8 TH/MM3 (4.0-11.0)
[2017-11-02 06:37] LABS: BICARBONATE 28.1 MEQ/L (21.0-32.0); POTASSIUM 3.7 MEQ/L (3.5-5.1)
[2017-11-02] MEDS: MULTIVITAMINS/MINERALS THERAPEUTIC TAB PO SCH (07:42)
[2017-11-02] MEDS: LIPASE/PROTEASE/AMYLASE (24,000/76,000/120,000) CAP PO SCH ×3 (07:42→17:44)
[2017-11-02] MEDS: DOCUSATE SODIUM 50 MG/SENNA 8.6 MG TAB PO SCH ×2 (07:43→19:53)
[2017-11-02 08:00] VITALS: BP 115/96; PULSE 70; RESP 16; TEMP 97.5; O2SAT 96
--- NOTE | 2017-11-02 10:00 | HHI.PR ---
Subjective Remarks Follow-up for surgery Patient had a migraine this morning she was given sumatriptan. Migraine headache is improving with sumatriptan. Patient will emotional today because today's her sister's . She stated that she tolerated the soup but has not been eating much. She remains afebrile. Otherwise she has no complaints. Objective Vitals Vital Signs Date Time Temp Pulse Resp B/P (MAP) Pulse Ox O2 Delivery O2 Flow Rate FiO2 11/02/17 04:48 99.0 72 17 102/50 (67) 96 11/02/17 00:30 98.7 71 17 102/53 (69) 96 11/01/17 20:47 98.9 70 17 97/51 (66) 95 11/01/17 16:00 98.4 68 17 112/48 (69) 94 11/01/17 14:00 97.6 72 16 111/58 (75) 96 Room Air 11/01/17 13:45 74 16 112/60 (77) 96 Room Air 11/01/17 13:30 77 16 117/63 (81) 95 Room Air 11/01/17 13:15 80 16 120/64 (82) 95 Room Air 11/01/17 13:10 97.9 80 20 121/60 (80) 100 Nasal Cannula 3 I/O 11/01/17 11/01/17 11/01/17 11/02/17 11/02/17 11/02/17 07:00 15:00 23:00 07:00 15:00 23:00 Intake Total 0 ml 1040 ml 240 ml 120 ml Output Total 350 ml 452 ml 1000 ml 550 ml Balance -350 ml 588 ml -760 ml -430 ml Intake Oral 0 ml 240 ml 120 ml IV Total 40 ml Other 1000 ml Output Urine Total 350 ml 350 ml 1000 ml 550 ml Emesis 2 ml Estimated Blood Loss 100 ml # Bowel Movements 0 0 0 Result Diagram: 11/02/17 0552 11/02/17551 Objective Remarks GENERAL: in NAD CARDIOVASCULAR: Regular rate and rhythm without murmurs, gallops, or rubs. RESPIRATORY: Breath sounds equal bilaterally. No accessory muscle use. GASTROINTESTINAL: Abdomen soft, non-tender, nondistended. MUSCULOSKELETAL: No cyanosis, or edema. NEURO: CN2-12 intact. Motor and sensation grossly intact. Coordination intact. Medications and IVs Current Medications Morphine Sulfate (Morphine Inj) 3 mg ONCE ONCE IV PUSH Last administered on 13:32; Start 10/31/17 at 13:00; Stop 10/31/17 at 13:02; Status DC Sodium Chloride 500 ml @ 500 mls/hr BOLUS ONCE IV Last administered on 13:31; Start 10/31/17 at 13:00; Stop 10/31/17 at 13:59; Status DC Ondansetron HCl (Zofran Inj) 4 mg ONCE ONCE IV Last administered on 10/31/17 13:32; Start 10/31/17 at 13:30; Stop 10/31/17 at 13:31; Status DC Ondansetron HCl (Zofran Inj) 4 mg STK-MED ONCE .ROUTE ; Start 10/31/17 at 13:30 ; Stop 10/31/17 at 13:31; Status DC Morphine Sulfate (Morphine Inj) 3 mg ONCE ONCE IV PUSH Last administered on 15:53; Start 10/31/17 at 15:00; Stop 10/31/17 at 15:01; Status DC Sodium Chloride 1,000 ml @ 75 mls/hr [id number] IV Last administered on 23:46; Start 10/31/17 at 23:59; Stop 11/01/17 at 11:19; Status DC Sodium Chloride (NS Flush) 2 ml UNSCH PRN IV FLUSH FLUSH AFTER USING IV ACCESS Last administered on 11/01/17 06:30; Start 10/31/17 at 17:30 Sodium Chloride (NS Flush) 2 ml BID IV FLUSH Last administered on 11/01/17 21: 00; Start 10/31/17 at 21:00 Acetaminophen (Tylenol) 650 mg Q4H PRN PO TEMP > 100.4; Start 10/31/17 at 17:30 Ondansetron HCl (Zofran Inj) 4 mg Q6H PRN IVP NAUSEA OR VOMITING Last administered on 11/01/17 06:33; Start 10/31/17 at 17:30; Stop 11/01/17 at 09:35 ; Status DC Naloxone HCl (Narcan Inj) 0.4 mg UNSCH PRN IV PUSH SEE LABEL COMMENTS; Start 10/31/17 at 17:30; Stop 11/01/17 at 11:20; Status DC Senna/Docusate Sodium (Angely-Colace) 1 tab BID PO Last administered on 21:43; Start 10/31/17 at 21:00; Stop 11/01/17 at 10:58; Status DC Magnesium Hydroxide (Milk Of Magnesia Liq) 30 ml Q12H PRN PO Mild constipation ; Start 10/31/17 at 17:30 Sennosides (Senokot) 17.2 mg Q12H PRN PO Moderate constipation; Start 10/31/17 at 17:30 Bisacodyl (Dulcolax Supp) 10 mg DAILY PRN RECTAL SEVERE CONSITIPATION; Start 10/31/17 at 17:30 Lactulose (Lactulose Liq) 30 ml DAILY PRN PO SEVERE CONSITIPATION; Start at 17:30 Amylase/Lipase/ Protease (Creon 24-76-120) 1 cap TIDPC PO Last administered on 11/02/17 07:42; Start 10/31/17 at 18:30 Morphine Sulfate (Morphine Inj) 2 mg Q3H PRN IV PUSH pain 6-10 Last administered on 11/01/17 06:28; Start 10/31/17 at 17:30; Stop 11/01/17 at 11:53 ; Status DC Lactated Ringer's 1,000 ml @ 30 mls/hr Q24H PRN IV SEE LABEL COMMENTS Last administered on 11/01/17 06:29; Start 10/31/17 at 20:30; Stop 11/03/17 at 20:29 Sodium Chloride 500 ml @ 30 mls/hr [id number] PRN IV SEE LABEL COMMENTS; Start at 20:30; Stop 11/03/17 at 20:29 Povidone Iodine (Betadine 5% Antisepsis Kit) 1 applic CONTRACTS ADMINISTRATOR PRN EACH NARE SEE LABEL COMMENTS; Start 10/31/17 at 20:30; Stop 11/03/17 at 20:29 Chlorhexidine Gluconate (Chlorhexidine 2% Cloth) 3 pack CONTRACTS ADMINISTRATOR PRN TOPICAL SEE LABEL COMMENTS; Start 10/31/17 at 20:30; Stop 11/03/17 at 20:29 Dextrose/Sodium Chloride 1,000 ml @ 100 mls/hr Q10H IV Last administered on 00:00; Start 11/01/17 at 11:30 Miscellaneous Information (Post-op Orders (for Pharmacy)) STAT ONCE XX ; Start 11/01/17 at 09:30; Stop 11/01/17 at 10:58; Status DC Enoxaparin Sodium (Lovenox Inj) 40 mg Q24H SQ ; Start 11/02/17 at 12:00; Stop 11/11/17 at 12:01 Senna/Docusate Sodium (Angely-Colace) 1 tab BID PO Last administered on 07:43; Start 11/01/17 at 21:00 Magnesium Hydroxide (Milk Of Magnesia Liq) 10 ml Q12H PRN PO CONSTIPATION; Start 11/01/17 at 09:30; Status UNV Cefazolin Sodium 1000 mg/Sodium Chloride 100 ml @ 200 mls/hr Q8H IV Last administered on 11/02/17 04:17; Start 11/01/17 at 20:00; Stop 11/02/17 at 12:29 Miscellaneous Information UNSCH PRN XX SEE LABEL COMMENTS; Start 11/01/17 at 09:30 Miscellaneous Medication ([facility] Information) ONCE ONCE XX ; Start 11/01/17 at 09:30; Stop 11/01/17 at 09:31; Status UNV Acetaminophen/ Hydrocodone Bitart ([place] 7.5-325 Mg) 1 tab Q4H PRN PO PAIN LESS THAN 5 ON SCALE Last administered on 11/02/17 08:21; Start 11/01/17 at 09: 30 Acetaminophen/ Hydrocodone Bitart ([place] 7.5-325 Mg) 2 tab Q6H PRN PO PAIN GREATER THAN/EQUAL TO 5; Start 11/01/17 at 09:30 Morphine Sulfate (Morphine Inj) 3 mg Q3H PRN IV PUSH BREAKTHROUGH PAIN; Start 11/01/17 at 15:00 Ondansetron HCl (Zofran Inj) 4 mg Q4H PRN IVP NAUSEA OR VOMITING; Start at 09:30; Status UNV Multivitamins/ Minerals Therapeutic (Theragran M Tab) 1 tab DAILY PO Last administered on 11/02/17 07:42; Start 11/02/17 at 09:00 Diphenhydramine HCl (Benadryl) 25 mg Q6H PRN PO ITCHING; Start 11/01/17 at 09: 30 Naloxone HCl (Narcan Inj) 0.4 mg UNSCH PRN IV PUSH RESPIRATORY RATE LESS THAN 10; Start 11/01/17 at 09:30 Ondansetron HCl (Zofran Inj) 4 mg Q4HR PRN IVP NAUSEA OR VOMITING; Start at 09:45 Gentamicin Sulfate (Gentamicin Inj) 240 mg STK-MED ONCE .ROUTE Last administered on 11/01/17 12:26; Start 11/01/17 at 11:30; Stop 11/01/17 at 11:31 ; Status DC Acetaminophen 100 ml @ As Directed STK-MED ONCE IV ; Start 11/01/17 at 11:32; Stop 11/01/17 at 11:33; Status DC Vancomycin HCl (Vancomycin Inj) 1,000 mg STK-MED ONCE .ROUTE Last administered on 11/01/17 12:23; Start 11/01/17 at 12:21; Stop 11/01/17 at 12:22; Status DC Miscellaneous Information ALL NURSING DEPARTME... UNSCH PRN .XX SEE LABEL COMMENTS; Start 11/01/17 at 14:15; Stop 11/02/17 at 14:14 Sumatriptan Succinate (Imitrex) 50 mg DAILY PRN PO MIGRAINE HEADACHE; Start at 08:15 A/P Assessment and Plan 62-year-old female with past medical history significant for metastatic pancreatic cancer presents with left hip fracture. 1. Left hip fracture Lower extremity CT showed minimally displaced intertrochanteric fracture of the proximal femur Patient scheduled for surgery at 11:30 AM. Management per orthopedic surgeon. 2. History of pancreatic cancer Patient is status post distal pancreatectomy and splenectomy, brainstem tumor removal and chemotherapy/radiation Continue home Creon 3. Celiac disease Gluten-free diet 4. Migraines Patient had episode of emesis to his migraines. Will give Zofran when necessary. Patient transferred an ice pack for her migraines. Case discussed with patient's nurse. Jenni Ngo MD Nov 02, 2017 10:00
[2017-11-02] MEDS: ENOXAPARIN SODIUM 40 MG/0.4 ML SYRINGE SQ SCH (11:33)
[2017-11-02 12:00] VITALS: BP 130/63; PULSE 79; RESP 16; TEMP 97.6; O2SAT 94
[2017-11-02] MEDS: ONDANSETRON HCL 4 MG/2 ML VIAL IVP PRN (13:44)
[2017-11-02 16:00] VITALS: BP 121/56; PULSE 79; RESP 16; TEMP 97.8; O2SAT 95
[2017-11-02] MEDS: SODIUM CHLORIDE 0.9% FLUSH 10 ML FLUSH IV FLUSH SCH (19:57)
[2017-11-02 20:36] VITALS: BP 94/52; PULSE 80; RESP 16; TEMP 97.8; O2SAT 95
[2017-11-02] MEDS: DEXT 5%-NACL 0.45% 1000 ML INJ 1,000 ML IV SCH (20:42)
[2017-11-03] VITALS (8 sets, daily range): BP systolic 98–120; BP diastolic 41–56; PULSE 76–82; RESP 16–18; TEMP 97.6–99; O2SAT 93–96
[2017-11-03] MEDS: ACETAMINOPHEN/HYDROcodone 325 MG/7.5 MG TAB PO PRN ×3 (06:16→18:30)
[2017-11-03 08:48] LABS: HEMATOCRIT 29.8 % (35.0-46.0); MEAN CELL VOLUME 98.4 FL (80.0-100.0); MEAN CORPUSCULAR HGB CONC 33.6 % (32.0-36.0); PLATELET COUNT 166 TH/MM3 (150-450); RED BLOOD COUNT 3.03 MIL/MM3 (4.00-5.30); RED CELL DISTRIBUTION WIDTH 12.8 % (11.6-17.2); REVIEW FLAG FINAL; WHITE BLOOD COUNT 7.7 TH/MM3 (4.0-11.0)
[2017-11-03] MEDS: LIPASE/PROTEASE/AMYLASE (24,000/76,000/120,000) CAP PO SCH ×3 (08:49→18:30)
[2017-11-03] MEDS: DOCUSATE SODIUM 50 MG/SENNA 8.6 MG TAB PO SCH ×2 (08:49→21:17)
[2017-11-03] MEDS: MULTIVITAMINS/MINERALS THERAPEUTIC TAB PO SCH (08:49)
--- NOTE | 2017-11-03 08:50 | PD.ORT.PN ---
Subjective Post Op Day #: 2 Subjective Remarks pain under control. Objective Vitals Vital Signs Date Time Temp Pulse Resp B/P (MAP) Pulse Ox O2 Delivery O2 Flow Rate FiO2 11/03/17 01:32 95 11/03/17 00:21 97.6 76 16 98/56 (70) 95 11/02/17 20:36 97.8 80 16 94/52 (66) 95 11/02/17 16:00 97.8 79 16 121/56 (77) 95 11/02/17 12:00 97.6 79 16 130/63 (85) 94 I/O 11/02/17 11/02/17 11/02/17 11/03/17 11/03/17 11/03/17 07:00 15:00 23:00 07:00 15:00 23:00 Intake Total 120 ml 840 ml 120 ml Output Total 550 ml 1900 ml 250 ml Balance -430 ml -1060 ml -130 ml Intake Oral 120 ml 840 ml 120 ml Output Urine Total 550 ml 1900 ml 250 ml # Bowel Movements 0 0 0 Result Diagram: 11/02/17 0552 11/02/17 0552 Objective Remarks in bed, nad dressing c/d/i neg homans nvi Assessment & Plan Ortho Post Op Day #: 2 Problem List: Assessment and Plan s/p L Troch Nail wbat daily dressing changes lovenox please give copy of Op Note and CD of xrays - patient lives in [place] ortho stable f/up dr. thapa 2 weeks if patient still in [facility] Irvin Laughlin Nov 03, 2017 08:50
[2017-11-03] MEDS: SUMAtriptan SUCCINATE 50 MG TAB PO PRN (08:52)
[2017-11-03] MEDS: ONDANSETRON HCL 4 MG/2 ML VIAL IVP PRN (08:52)
[2017-11-03] MEDS: SODIUM CHLORIDE 0.9% FLUSH 10 ML FLUSH IV FLUSH SCH ×2 (09:00→20:47)
[2017-11-03 09:14] LABS: BICARBONATE 28.9 MEQ/L (21.0-32.0); POTASSIUM 3.7 MEQ/L (3.5-5.1)
[2017-11-03] MEDS ORDERED: SOD PHOSPHATE/SOD BIPHOSPHATE (ADULT) ENEMA 133ML RECTAL ONE (10:00)
[2017-11-03] MEDS: DEXT 5%-NACL 0.45% 1000 ML INJ 1,000 ML IV SCH ×2 (11:00→22:19)
[2017-11-03] MEDS: ENOXAPARIN SODIUM 40 MG/0.4 ML SYRINGE SQ SCH (13:00)
--- NOTE | 2017-11-03 13:30 | HHI.PR ---
Subjective Remarks f/u for hip surgery and migraines. patient stated migraines resolved. she had no other complaints. Patient stated she has nephews in [place] and interested in going there. otherwise no other events. contreras removed this morning and she stated she knows she is about to have BM soon. Objective Vitals Vital Signs Date Time Temp Pulse Resp B/P (MAP) Pulse Ox O2 Delivery O2 Flow Rate FiO2 11/03/17 12:00 98.4 76 18 106/41 (62) 95 11/03/17 08:30 96 21 11/03/17 08:00 98.9 76 18 118/53 (74) 93 11/03/17 01:32 95 11/03/17 00:21 97.6 76 16 98/56 (70) 95 11/02/17 20:36 97.8 80 16 94/52 (66) 95 11/02/17 16:00 97.8 79 16 121/56 (77) 95 I/O 11/02/17 11/02/17 11/02/17 11/03/17 11/03/17 11/03/17 07:00 15:00 23:00 07:00 15:00 23:00 Intake Total 120 ml 840 ml 120 ml Output Total 550 ml 1900 ml 250 ml Balance -430 ml -1060 ml -130 ml Intake Oral 120 ml 840 ml 120 ml Output Urine Total 550 ml 1900 ml 250 ml # Bowel Movements 0 0 0 Result Diagram: 11/03/17 0741 11/03/17 0741 Objective Remarks GENERAL: in NAD CARDIOVASCULAR: Regular rate and rhythm without murmurs, gallops, or rubs. RESPIRATORY: Breath sounds equal bilaterally. No accessory muscle use. GASTROINTESTINAL: Abdomen soft, non-tender, nondistended. MUSCULOSKELETAL: No cyanosis, or edema. NEURO: CN2-12 intact. Motor and sensation grossly intact. Coordination intact. Medications and IVs Current Medications Morphine Sulfate (Morphine Inj) 3 mg ONCE ONCE IV PUSH Last administered on 13:32; Start 10/31/17 at 13:00; Stop 10/31/17 at 13:02; Status DC Sodium Chloride 500 ml @ 500 mls/hr BOLUS ONCE IV Last administered on 13:31; Start 10/31/17 at 13:00; Stop 10/31/17 at 13:59; Status DC Ondansetron HCl (Zofran Inj) 4 mg ONCE ONCE IV Last administered on 10/31/17 13:32; Start 10/31/17 at 13:30; Stop 10/31/17 at 13:31; Status DC Ondansetron HCl (Zofran Inj) 4 mg STK-MED ONCE .ROUTE ; Start 10/31/17 at 13:30 ; Stop 10/31/17 at 13:31; Status DC Morphine Sulfate (Morphine Inj) 3 mg ONCE ONCE IV PUSH Last administered on 15:53; Start 10/31/17 at 15:00; Stop 10/31/17 at 15:01; Status DC Sodium Chloride 1,000 ml @ 75 mls/hr [id number] IV Last administered on 23:46; Start 10/31/17 at 23:59; Stop 11/01/17 at 11:19; Status DC Sodium Chloride (NS Flush) 2 ml UNSCH PRN IV FLUSH FLUSH AFTER USING IV ACCESS Last administered on 11/01/17 06:30; Start 10/31/17 at 17:30 Sodium Chloride (NS Flush) 2 ml BID IV FLUSH Last administered on 11/02/17 19: 57; Start 10/31/17 at 21:00 Acetaminophen (Tylenol) 650 mg Q4H PRN PO TEMP > 100.4; Start 10/31/17 at 17:30 Ondansetron HCl (Zofran Inj) 4 mg Q6H PRN IVP NAUSEA OR VOMITING Last administered on 11/01/17 06:33; Start 10/31/17 at 17:30; Stop 11/01/17 at 09:35 ; Status DC Naloxone HCl (Narcan Inj) 0.4 mg UNSCH PRN IV PUSH SEE LABEL COMMENTS; Start 10/31/17 at 17:30; Stop 11/01/17 at 11:20; Status DC Senna/Docusate Sodium (Angely-Colace) 1 tab BID PO Last administered on 21:43; Start 10/31/17 at 21:00; Stop 11/01/17 at 10:58; Status DC Magnesium Hydroxide (Milk Of Magnesia Liq) 30 ml Q12H PRN PO Mild constipation ; Start 10/31/17 at 17:30 Sennosides (Senokot) 17.2 mg Q12H PRN PO Moderate constipation; Start 10/31/17 at 17:30 Bisacodyl (Dulcolax Supp) 10 mg DAILY PRN RECTAL SEVERE CONSITIPATION; Start 10/31/17 at 17:30 Lactulose (Lactulose Liq) 30 ml DAILY PRN PO SEVERE CONSITIPATION; Start at 17:30 Amylase/Lipase/ Protease (Creon 24-76-120) 1 cap TIDPC PO Last administered on 11/03/17 12:59; Start 10/31/17 at 18:30 Morphine Sulfate (Morphine Inj) 2 mg Q3H PRN IV PUSH pain 6-10 Last administered on 11/01/17 06:28; Start 10/31/17 at 17:30; Stop 11/01/17 at 11:53 ; Status DC Lactated Ringer's 1,000 ml @ 30 mls/hr Q24H PRN IV SEE LABEL COMMENTS Last administered on 11/01/17 06:29; Start 10/31/17 at 20:30; Stop 11/03/17 at 20:29 Sodium Chloride 500 ml @ 30 mls/hr [id number] PRN IV SEE LABEL COMMENTS; Start at 20:30; Stop 11/03/17 at 20:29 Povidone Iodine (Betadine 5% Antisepsis Kit) 1 applic CLERICAL ADMINISTRATOR PRN EACH NARE SEE LABEL COMMENTS; Start 10/31/17 at 20:30; Stop 11/03/17 at 20:29 Chlorhexidine Gluconate (Chlorhexidine 2% Cloth) 3 pack CLERICAL ADMINISTRATOR PRN TOPICAL SEE LABEL COMMENTS; Start 10/31/17 at 20:30; Stop 11/03/17 at 20:29 Dextrose/Sodium Chloride 1,000 ml @ 70 mls/hr [id number] IV Last administered on 11/01/17 00:00; Start 11/01/17 at 11:30 Miscellaneous Information (Post-op Orders (for Pharmacy)) STAT ONCE XX ; Start 11/01/17 at 09:30; Stop 11/01/17 at 10:58; Status DC Enoxaparin Sodium (Lovenox Inj) 40 mg Q24H SQ Last administered on 11/03/17 13 :00; Start 11/02/17 at 12:00; Stop 11/11/17 at 12:01 Senna/Docusate Sodium (Angely-Colace) 1 tab BID PO Last administered on 08:49; Start 11/01/17 at 21:00 Magnesium Hydroxide (Milk Of Magnesia Liq) 10 ml Q12H PRN PO CONSTIPATION; Start 11/01/17 at 09:30; Status UNV Cefazolin Sodium 1000 mg/Sodium Chloride 100 ml @ 200 mls/hr Q8H IV Last administered on 11/02/17 11:33; Start 11/01/17 at 20:00; Stop 11/02/17 at 12:29 ; Status DC Miscellaneous Information UNSCH PRN XX SEE LABEL COMMENTS; Start 11/01/17 at 09:30 Miscellaneous Medication ([facility] Information) ONCE ONCE XX ; Start 11/01/17 at 09:30; Stop 11/01/17 at 09:31; Status UNV Acetaminophen/ Hydrocodone Bitart (Bivins 7.5-325 Mg) 1 tab Q4H PRN PO PAIN LESS THAN 5 ON SCALE Last administered on 11/03/17 12:10; Start 11/01/17 at 09: 30 Acetaminophen/ Hydrocodone Bitart (Bivins 7.5-325 Mg) 2 tab Q6H PRN PO PAIN GREATER THAN/EQUAL TO 5; Start 11/01/17 at 09:30 Morphine Sulfate (Morphine Inj) 3 mg Q3H PRN IV PUSH BREAKTHROUGH PAIN; Start 11/01/17 at 15:00 Ondansetron HCl (Zofran Inj) 4 mg Q4H PRN IVP NAUSEA OR VOMITING; Start at 09:30; Status UNV Multivitamins/ Minerals Therapeutic (Theragran M Tab) 1 tab DAILY PO Last administered on 11/03/17 08:49; Start 11/02/17 at 09:00 Diphenhydramine HCl (Benadryl) 25 mg Q6H PRN PO ITCHING; Start 11/01/17 at 09: 30 Naloxone HCl (Narcan Inj) 0.4 mg UNSCH PRN IV PUSH RESPIRATORY RATE LESS THAN 10; Start 11/01/17 at 09:30 Ondansetron HCl (Zofran Inj) 4 mg Q4HR PRN IVP NAUSEA OR VOMITING Last administered on 11/03/17 08:52; Start 11/01/17 at 09:45 Gentamicin Sulfate (Gentamicin Inj) 240 mg STK-MED ONCE .ROUTE Last administered on 11/01/17 12:26; Start 11/01/17 at 11:30; Stop 11/01/17 at 11:31 ; Status DC Acetaminophen 100 ml @ As Directed STK-MED ONCE IV ; Start 11/01/17 at 11:32; Stop 11/01/17 at 11:33; Status DC Vancomycin HCl (Vancomycin Inj) 1,000 mg STK-MED ONCE .ROUTE Last administered on 11/01/17 12:23; Start 11/01/17 at 12:21; Stop 11/01/17 at 12:22; Status DC Miscellaneous Information ALL NURSING DEPARTME... UNSCH PRN .XX SEE LABEL COMMENTS; Start 11/01/17 at 14:15; Stop 11/02/17 at 14:14; Status DC Sumatriptan Succinate (Imitrex) 50 mg DAILY PRN PO MIGRAINE HEADACHE Last administered on 11/03/17 08:52; Start 11/02/17 at 08:15 Sodium Biphosphate/ Sodium Phosphate (Fleets Enema (Adult)) 133 ml ONCE ONCE RECTAL ; Start 11/03/17 at 10:00; Stop 11/03/17 at 10:01; Status DC A/P Assessment and Plan 62-year-old female with past medical history significant for metastatic pancreatic cancer presents with left hip fracture. 1. Left hip fracture Lower extremity CT showed minimally displaced intertrochanteric fracture of the proximal femur s/p Intramedullary nailing of left intertrochanteric hip fracture on 11/02. Management per orthopedic patient cleared for discharge. Follow-up in [address] Chang if still in town or in [place] and patient 's hometown. 2. History of pancreatic cancer Patient is status post distal pancreatectomy and splenectomy, brainstem tumor removal and chemotherapy/radiation Continue home Creon 3. Celiac disease Gluten-free diet 4. Migraines Resolved. Continue with sumatriptan when necessary. Case discussed with patient's nurse. Discharge Planning Once patient has bowel movement urinate on her own can be discharged to a SNF, but need authorization from her insurance company. d/w Denisha. Jenni Ngo MD Nov 03, 2017 13:30
[2017-11-04] MEDS: ACETAMINOPHEN/HYDROcodone 325 MG/7.5 MG TAB PO PRN ×4 (00:54→13:15)
[2017-11-04 00:58] VITALS: BP 97/45; PULSE 71; RESP 18; TEMP 98.1; O2SAT 98
[2017-11-04] MEDS: SUMAtriptan SUCCINATE 50 MG TAB PO PRN (05:36)
[2017-11-04 08:00] VITALS: BP 102/45; PULSE 73; RESP 16; TEMP 97; O2SAT 95
--- NOTE | 2017-11-04 08:03 | PD.ORT.PN ---
Subjective Post Op Day #: 3 Subjective Remarks pain under control. ready to go to snf. Objective Vitals Vital Signs Date Time Temp Pulse Resp B/P (MAP) Pulse Ox O2 Delivery O2 Flow Rate FiO2 11/04/17 00:58 98.1 71 18 97/45 (62) 98 11/03/17 21:43 98.3 82 16 120/48 (72) 95 11/03/17 21:17 96 11/03/17 16:00 99.0 78 18 117/44 (68) 96 11/03/17 12:00 98.4 76 18 106/41 (62) 95 11/03/17 08:30 96 21 I/O 11/03/17 11/03/17 11/03/17 11/04/17 11/04/17 11/04/17 07:00 15:00 23:00 07:00 15:00 23:00 Intake Total 120 ml 600 ml Output Total 250 ml Balance -130 ml 600 ml Intake Oral 120 ml 600 ml Output Urine Total 250 ml # Voids 1 # Bowel Movements 0 1 Result Diagram: 11/03/17 0741 11/03/17 0741 Objective Remarks in bed, nad dressing c/d/i neg homans nvi Assessment & Plan Ortho Post Op Day #: 3 Problem List: Assessment and Plan s/p L Troch Nail wbat daily dressing changes lovenox please give copy of Op Note and CD of xrays - patient lives in [place] ortho stable - cleared for d/c f/up dr. thapa 2 weeks prior to travelling back to [place] Irvin Laughlin Nov 04, 2017 08:03
[2017-11-04] MEDS ORDERED: PERI PO (08:50)
--- NOTE | 2017-11-04 08:54 | HHI.DS ---
Discharge Summary Admission Date Oct 31, 2017 at 16:59 Discharge Date: Nov 04, 2017 Admitting Diagnosis proximal femur fracture (1) Closed fracture of intertrochanteric section of femur ICD Code: S72.143A - Displaced intertrochanteric fracture of unspecified femur , initial encounter for closed fracture Diagnosis: Principal (2) Migraine ICD Code: G43.909 - Migraine, unspecified, not intractable, without status migrainosus Diagnosis: Principal Procedures See hospital course Brief History - From Admission 62-year-old female with a past medical history significant for pancreatic cancer 2 years ago status post resection, chemotherapy and radiation [place]. The patient reports she is somewhat unsteady on her feet since she had a brain stem metastasis removed and was walking up an incline on the sand when she lost her footing and fell onto her left hip. Lower extremity CT shows a minimally displaced left intertrochanteric fracture of the proximal femur. The patient reports pain with movement. Laboratory values within normal limits. Temperature 98.1, pulse 74, respiratory rate 20, BP 122/57, pulse ox 98% on room air. CBC/BMP: 11/03/17 0741 11/03/17 0741 Significant Findings Laboratory Tests Test 11/02/17 05:52 11/03/17 07:41 Red Blood Count 2.99 MIL/MM3 (4.00-5.30) 3.03 MIL/MM3 (4.00-5.30) Hemoglobin 9.9 GM/DL (11.6-15.3) 10.0 GM/DL (11.6-15.3) Hematocrit 29.3 % (35.0-46.0) 29.8 % (35.0-46.0) Creatinine 0.47 MG/DL (0.50-1.00) 0.41 MG/DL (0.50-1.00) Random Glucose 108 MG/DL (74-106) Calcium Level 8.0 MG/DL (8.5-10.1) 8.3 MG/DL (8.5-10.1) Imaging Last Impressions Hip X-Ray 11/01/17 0000 Signed Impressions: Service Date/Time: Wednesday, November 01, 2017 12:32 - CONCLUSION: Appropriate postoperative appearance of the left hip status post open reduction and internal fixation as above. Robert Crespo MD Pelvis CT 10/31/17 0000 Signed Impressions: Service Date/Time: Tuesday, October 31, 2017 16:07 - CONCLUSION: Intact pelvis. Vic Ortiz MD Lower Extremity CT 10/31/17 0000 Signed Impressions: Service Date/Time: Tuesday, October 31, 2017 16:07 - CONCLUSION: Minimally displaced intertrochanteric fracture of the proximal left femur. Vic Ortiz MD Hip and Pelvis X-Ray 10/31/17 0000 Signed Impressions: Service Date/Time: Tuesday, October 31, 2017 15:06 - CONCLUSION: 1. No acute fracture or dislocation. Abdoul Mccall MD PE at Discharge GENERAL: in NAD CARDIOVASCULAR: Regular rate and rhythm without murmurs, gallops, or rubs. RESPIRATORY: Breath sounds equal bilaterally. No accessory muscle use. GASTROINTESTINAL: Abdomen soft, non-tender, nondistended. MUSCULOSKELETAL: No cyanosis, or edema. NEURO: CN2-12 intact. Motor and sensation grossly intact. Coordination intact. Pt update on day of discharge Follow-up for medical management Patient stated that migraines better control. She said it resolved yesterday. She had a minor one this morning that resolved quickly. She stated that her appetite changed and she thinks that's what's eliciting her migraines. Denied nausea or vomiting. Patient is tolerating oral intake. She states she had a bowel movement and she is urinating on her own. Patient also stated pain is controlled. She has no complaints. Hospital Course 62-year-old female with past medical history significant for metastatic pancreatic cancer presents with left hip fracture secondary to mechanical fall. 1. Left hip fracture due to mechanical fall Lower extremity CT showed minimally displaced intertrochanteric fracture of the proximal femur Patient had Intramedullary nailing of left intertrochanteric hip fracture on 11/02. At the time of discharge she was urinating on her own, having bowel movements, tolerating oral intake, and pain was controlled. Follow-up in [address] Chang if still in town or in [place] and patient 's hometown. 2. History of pancreatic cancer Patient is status post distal pancreatectomy and splenectomy, brainstem tumor removal and chemotherapy/radiation Continue home Creon 3. Celiac disease Gluten-free diet 4. Migraines Resolved with sumatriptan. Most likely trigger is decreased oral intake. Pt Condition on Discharge: Good Discharge Disposition: Discharge to [facility] Discharge Time: <= 30 minutes Discharge Instructions DIET: Follow Instructions for: Low Fat Diet Activities you can perform: See Additionl Instruction Other Activity Instructions: wbat daily dressing changes please give copy of Op Note and CD of xrays - patient lives in [place] Follow up Referrals: Orthopedics - 2 Weeks with Irvin Chang MD [facility]/ - Daily New Medications: Aspirin (Aspirin Low Dose) 81 Mg Chew 81 MG CHEW BID for Prevent Blood Clot for 30 Days, #60 TAB 0 Refills Enoxaparin Inj (Lovenox Inj) 40 Mg/0.4 Ml Syr 40 MG SQ DAILY for Blood Clot Prevention, #7 SYRINGE 0 Refills Hydrocodone-Acetaminophen ([place]) 7.5-325 mg Tab 1-2 TAB PO Q6H PRN for PAIN, #90 TAB 0 Refills Sennosides-Docusate Sodium (Gnp Senna Plus 8.6-50 mg) 8.6 Mg-50 Mg Tab 1 TAB PO BID for constipation, #14 TAB 0 Refills Continued Medications: Pancrelipase (Creon) 24,000-76,000-120,000 Units Cap 1 CAP PO TIDPC for Digestive Aid, #90 CAP 0 Refills Sumatriptan (Imitrex) 25 Mg Tab 25 MG PO ONCE PRN for MIGRAINE HEADACHE, TAB 0 Refills If a satisfactory response has not been obtained at 2 hours, a second dose may be administered Jenni Ngo MD Nov 04, 2017 08:54
[2017-11-04] MEDS: SODIUM CHLORIDE 0.9% FLUSH 10 ML FLUSH IV FLUSH SCH (09:00)
[2017-11-04] MEDS: DOCUSATE SODIUM 50 MG/SENNA 8.6 MG TAB PO SCH (09:27)
[2017-11-04] MEDS: MULTIVITAMINS/MINERALS THERAPEUTIC TAB PO SCH (09:27)
[2017-11-04] MEDS: LIPASE/PROTEASE/AMYLASE (24,000/76,000/120,000) CAP PO SCH ×2 (09:27→13:14)
[2017-11-04 09:49] LABS: HEMATOCRIT 31.9 % (35.0-46.0); MEAN CELL VOLUME 98.2 FL (80.0-100.0); MEAN CORPUSCULAR HEMOGLOBIN 33.3 PG (27.0-34.0); MEAN CORPUSCULAR HGB CONC 33.9 % (32.0-36.0); PLATELET COUNT 203 TH/MM3 (150-450); RED BLOOD COUNT 3.25 MIL/MM3 (4.00-5.30); RED CELL DISTRIBUTION WIDTH 12.8 % (11.6-17.2); REVIEW FLAG FINAL; WHITE BLOOD COUNT 6.2 TH/MM3 (4.0-11.0)
[2017-11-04 10:05] LABS: BICARBONATE 28.8 MEQ/L (21.0-32.0); POTASSIUM 3.8 MEQ/L (3.5-5.1)
[2017-11-04 12:00] VITALS: BP 106/41; PULSE 67; RESP 16; TEMP 98.1; O2SAT 96
[2017-11-04] MEDS: ENOXAPARIN SODIUM 40 MG/0.4 ML SYRINGE SQ SCH (13:14)
[2017-11-04 14:37] VITALS: O2SAT 95
== END 2017-11-04 14:50 | DRG 482 ==
LOC: NEPC 12:31 → NEDA 16:59 → N06A 19:29
PROVIDERS: ADMIT Family Medicine; ATTEND Family Medicine
PROC: 0QS706Z Reposition Left Upper Femur with Intramedullary Internal Fixation Device, Open Approach (ICD-10-PCS; principal; 2017-11-01 11:52)
DX: S72.142A Displaced intertrochanteric fracture of left femur, initial encounter for closed fracture (principal); W18.30XA Fall on same level, unspecified, initial encounter; Y92.832 Beach as the place of occurrence of the external cause; R26.81 Unsteadiness on feet; K90.0 Celiac disease; G43.909 Migraine, unspecified, not intractable, without status migrainosus; R11.10 Vomiting, unspecified; Z85.07 Personal history of malignant neoplasm of pancreas; Z92.21 Personal history of antineoplastic chemotherapy; Z92.3 Personal history of irradiation; Z90.411 Acquired partial absence of pancreas; Z90.81 Acquired absence of spleen
CPT/HCPCS: 72192; 73502; 73700; 76000; 80048; 80053; 85025; 85027; 85610; 85730; 86850; 86900; 86901; 93005; 96361; 96374; 96375; C1713; J0131; J0690; J1580; J1650; J2270; J2405; J3370; J7030; J7040; J7120